=== PATIENT | female | born 1940 | race Caucasian/White ===

== ENCOUNTER 2017-04-10 10:47 | Outpatient (CLI) | payer MEDICARE, OTHER ==
--- NOTE | 2017-04-17 07:02 | Mammography Report ---
EXAM: DIGITAL BILATERAL SCREENING MAMMOGRAM 04/10/2017. CLINICAL INDICATION: A 76-year-old with personal history of right breast cancer , status post lumpectomy and radiation therapy for screening. COMPARISON: 03/2016, 02/2015, 02/2014, 02/2013, 01/2011, 01/2010. TECHNIQUE: Routine CC and MLO projections were obtained of the breasts. FINDINGS: The breasts again demonstrate scattered fibroglandular densities bilaterally. Postoperative and posttreatment changes in the right breast are stable. Coarse, typically benign calcifications are present. No suspicious masses, clustered microcalcifications, or regions of architectural distortion are identified. IMPRESSION: Benign findings. RECOMMENDATIONS: Routine annual screening unless otherwise clinically indicated. BIRADS 2: Benign findings. STANDARD QUALIFYING STATEMENTS 1. This examination was reviewed with the aid of Computed-Aided Detection (CAD) . 2. A negative or benign imaging report should not delay biopsy if clinically suspicious findings are present. Consider surgical consultation if warranted. More than 5% of cancers are not identified by imaging. 3. Dense breasts may obscure an underlying neoplasm. TD: 04/11/2017 20:06 CEDRIC
== END 2017-04-10 10:48 | disposition home or self-care (01) ==
LOC: DI 10:47
PROVIDERS: ATTEND Family Medicine
DX: Z12.31 Encounter for screening mammogram for malignant neoplasm of breast (principal); Z85.3 Personal history of malignant neoplasm of breast
CPT/HCPCS: 77067

== ENCOUNTER 2018-04-24 16:01 | Outpatient (CLI) | payer MEDICARE, OTHER ==
--- NOTE | 2018-04-25 08:32 | Mammography Report ---
Reason: SCREENING JHOANA Procedure Date: 04/24/2018 Accession Number: [id number] / [id number] Procedure: JEANNIE - Screening Mammo w/Alpesh CPT Code: FULL RESULT: EXAM: Screening Mammo w/Alpesh DATE: 04/24/2018 4:31 PM CLINICAL HISTORY: Screening encounter. Personal history of right breast cancer status post lumpectomy and radiation in 09/2006. History of early menses. TECHNIQUE: Bilateral CC and MLO views were obtained. COMPARISON: 04/10/2017 through 03/13/2013. FINDINGS: The breasts demonstrate scattered fibroglandular densities bilaterally. Postsurgical and posttreatment changes are again seen in the right breast. No suspicious masses, clustered microcalcifications, or regions of architectural distortion are identified. IMPRESSION: Benign findings RECOMMENDATION: Routine annual screening unless otherwise clinically indicated. BIRADS CATEGORY 2: Benign findings STANDARD QUALIFYING STATEMENTS: 1. This examination was not reviewed with the aid of Computer-Aided Detection (CAD). 2. A negative or benign imaging report should not preclude biopsy if clinically suspicious findings are present. 3. Dense breasts may obscure an underlying neoplasm. 4. This examination was reviewed with the aid of 3D breast imaging (tomosynthesis).
== END 2018-04-24 16:02 | disposition home or self-care (01) ==
LOC: DI 16:01
DX: Z12.31 Encounter for screening mammogram for malignant neoplasm of breast (principal); Z85.3 Personal history of malignant neoplasm of breast
CPT/HCPCS: 77063; 77067

== ENCOUNTER 2018-10-02 12:13 | Outpatient (CLI) | payer MEDICARE, OTHER ==
--- NOTE | 2018-10-02 14:58 | XRAY Report ---
Reason: PAIN IN RIGHT HIP Procedure Date: 10/02/2018 Accession Number: [id number] / [id number] Procedure: XR - Hip w/Pelvis 2-3V RT CPT Code: FULL RESULT: EXAM: RIGHT HIP RADIOGRAPHY EXAM DATE: 10/02/2018 12:27 PM. CLINICAL HISTORY: Pain in right hip. COMPARISON: None. TECHNIQUE: 2 views. FINDINGS: Bones: Normal. No fractures or bone lesion. Joints: Moderate relatively symmetric joint space narrowing of the femoral acetabular joints with mild marginal osteophytosis, slightly more pronounced on the right. Sacroiliac joints and pubic symphysis are within normal limits. Soft Tissues: Normal. No soft tissue swelling. IMPRESSION: Degenerative hip disease. RADIA
== END 2018-10-02 12:14 | disposition home or self-care (01) ==
LOC: DI 12:13
PROVIDERS: ATTEND Internal Medicine
DX: M16.11 Unilateral primary osteoarthritis, right hip (principal)

== ENCOUNTER 2019-04-01 07:36 | Outpatient (CLI) | payer MEDICARE, OTHER ==
--- NOTE | 2019-04-01 12:13 | Mammography Report ---
Reason: SCREENING MAMMO Procedure Date: 04/01/2019 Accession Number: [id number] / [id number] Procedure: JEANNIE - Screening Mammo w/Alpesh CPT Code: Final Report FULL RESULT: EXAM: Screening Mammo w/Alpesh DATE: 04/01/2019 8:19 AM CLINICAL HISTORY: The patient is an asymptomatic 78-year-old female presenting for screening mammography. Personal history right breast cancer, post conservation therapy. TECHNIQUE: (B) - Bilateral CC and MLO views were obtained. COMPARISON: 04/24/2018, 04/10/2017, 04/09/2016, 03/16/2015, 03/15/2014, 03/13/2013 02/28/2012 PARENCHYMAL PATTERN: (A) - The breasts demonstrate scattered fibroglandular densities bilaterally. FINDINGS: Stable posttreatment deformity in the right breast. The pattern of glandular asymmetry is stable given positional variation. Few coarse and dystrophic calcifications are noted. There are no suspicious masses, calcifications, or areas of distortion. IMPRESSION: Benign findings. BI-RADS category 2. RECOMMENDATION: (ANNUAL) - Recommend routine annual screening mammography. BI-RADS CATEGORY: (2) - Benign Findings. STANDARD QUALIFYING STATEMENTS: 1. This examination was not reviewed with the aid of Computer-Aided Detection (CAD). 2. A negative or benign imaging report should not preclude biopsy if clinically suspicious findings are present. 3. Dense breasts may obscure an underlying neoplasm. 4. This examination was reviewed with the aid of 3D breast imaging (tomosynthesis).
== END 2019-04-01 07:37 | disposition home or self-care (01) ==
LOC: DI 07:36
DX: Z12.31 Encounter for screening mammogram for malignant neoplasm of breast (principal); Z85.3 Personal history of malignant neoplasm of breast
CPT/HCPCS: 77063; 77067

== ENCOUNTER 2020-04-18 17:24 | Outpatient (CLI) | payer MEDICARE, OTHER | END 2020-04-18 17:25 | disposition home or self-care (01) | LOC: COV 17:24 | PROVIDERS: ATTEND Family Medicine | DX: Z20.828 Contact with and (suspected) exposure to other viral communicable diseases (principal) ==

== ENCOUNTER 2020-06-14 09:21 | Outpatient (CLI) | payer MEDICARE, OTHER ==
--- NOTE | 2020-06-15 15:07 | Mammography Report ---
BILATERAL DIGITAL SCREENING MAMMOGRAM 3D/2D: 06/14/2020 CLINICAL: Routine screening. Personal history of right breast cancer. Comparison is made to exams dated: 04/01/2019 mammogram, 04/24/2018 mammogram, 04/10/2017 mammogram, 04/09/2016 mammogram, 03/16/2015 mammogram, and 03/15/2014 mammogram - [facility]. The tissue of both breasts is predominantly fatty. There are stable benign calcifications in the right breast. There also are benign post operative fin dings in the right breast. No significant masses, calcifications, or other findings are seen in either breast. There has been no significant interval change. IMPRESSION: BENIGN There is no mammographic evidence of malignancy. A 1 year screening mammogram is recommended. This exam was interpreted at Station ID: [id number]. NOTE: For mammograms, a report in lay terms will be sent to the patient. Approximately 15% of breast malignancies will not be visualized mammographically. In the management of a palpable breast mass, a negative mammogram must not discourage biopsy of a clinically suspicious lesion. Electronically Signed By: Ghassan Armstrong acr/penrad:06/14/2020 09:53:18 ACR BI-RADS Category 2: Benign Finding(s) 3342F PARENCHYMAL PATTERN: (F) - The breast(s) demonstrate(s) diffuse fatty replacement. BI-RADS CATEGORY: (2) - 2 RECOMMENDATION: (ANNUAL) - Recommend routine annual screening mammography. [id number] 1 year screening LATERALITY: (B)
== END 2020-06-14 09:22 | disposition home or self-care (01) ==
LOC: DI 09:21
DX: Z12.31 Encounter for screening mammogram for malignant neoplasm of breast (principal); Z85.3 Personal history of malignant neoplasm of breast

== ENCOUNTER 2023-02-01 08:16 | Outpatient (CLI) | payer MEDICARE, OTHER ==
--- NOTE | 2023-02-01 10:31 | DEXA Report ---
PROCEDURE: Dexa Spine and/or Hip INDICATIONS: POST MENOPAUSAL TECHNIQUE: Dual energy x-ray absorptiometry (DXA) was performed on a docplanner System. Regions measur ed are the AP Spine, femoral neck, and if needed forearm. COMPARISON: None FINDINGS: Lumbar Spine: Bone Mineral Density 1.019 g/cm/cm,T score -1.3. Left Femoral Neck: Bone Mineral Density 0.64 g/cm/cm, T score -3. Left Hip: Bone Mineral Density 0.712 g/cm/cm,T score -2.3. (T score greater or equal to -1.0: NORMAL) (T score from -1.1 to -2.4: OSTEOPENIA) (T score less than or equal to -2.5 to: OSTEOPOROSIS) Impression: By WHO criteria, this patient has osteoporosis. Patients with diagnosis of osteoporosis or osteopenia should have regular bone mineral density assess ment. For those eligible for Medicare, routine testing is allowed once every 2 years. Testing frequ ency can be increased for patients who have rapidly progressing disease or for those who are receivin g medical therapy to restore bone mass. Reviewed by: Kai Weathers on 02/01/2023 10:30 AM PDT Approved by: Kai Weathers on 02/01/2023 10:30 AM PDT Station ID: [id number]
== END 2023-02-01 08:17 | disposition home or self-care (01) ==
LOC: DI 08:16
PROVIDERS: ATTEND Nurse Practitioner Family
DX: Z13.820 Encounter for screening for osteoporosis (principal); Z78.0 Asymptomatic menopausal state; M81.0 Age-related osteoporosis without current pathological fracture

== ENCOUNTER 2023-02-06 13:46 | Outpatient (CLI) | payer MEDICARE, OTHER ==
--- NOTE | 2023-02-07 11:52 | MRI Report ---
PROCEDURE: SHOULDER WO - LT INDICATIONS: CHRONIC LEFT SHOULDER PAIN TECHNIQUE: Noncontrast oblique coronal T2 fast spin echo with fat saturation, oblique sagittal T1 spin echo and T2 fast spin echo with fat saturation, axial T1 spin echo and T2 fast spin echo with fat saturation t hrough the shoulder. COMPARISON: None. FINDINGS: Image quality: Excellent. Rotator cuff: The distal portion of the subscapularis tendon is poorly visualized and full thickness tearing is suspected. There is grade 3-4 fatty infiltration of the subscapularis muscle. The distal supraspinatus and infraspinatus tendons appear attenuated, which may be secondary to generalized mild loss of muscle bulk although partial-thickness tearing is not excluded. No definite full thickness t earing is seen. The teres minor tendon is intact. There is grade 3-4 fatty infiltration of the teres minor muscle there is likely related to chronic denervation changes. No mass is seen along the course of the axillary nerve. Bones and bursae: Diffuse full-thickness cartilage loss is seen in the glenohumeral joint with marked remodeling of the articular surfaces as well as subchondral cystic changes and subchondral edema. Th e humeral head is high riding with narrowing of the acromiohumeral interval. There is retroversion of the distal glenoid articular surface relative to the midplane of the scapula. Multiple ossifications are seen surrounding the glenohumeral joint compatible with intra-articular loose bodies. Mild-to-mo derate degenerative changes are seen in the acromioclavicular joint. There is a small amount of subac romial/subdeltoid bursal fluid. Capsule and soft tissues: There is diffuse degenerative tearing and maceration of the labrum. The pro ximal biceps long head tendon appears to be intact within the intertubercular groove, although the in traarticular portion is not well seen. There is effacement of fat signal in the rotator interval. No definite capsular defect is seen. IMPRESSION: 1.Severe glenohumeral osteoarthrosis with subchondral cystic changes and subchondral edema as well as marked remodeling of the articular surfaces. Findings may be related to primary osteoarthrosis versu s prior trauma, osteonecrosis, or neuropathic arthropathy with secondary severe degenerative changes. 2.Chronic-appearing full-thickness tearing of the distal subscapularis tendon. There is grade 3-4 fat ty infiltration of the superior portion of the subscapularis muscle. 3.Attenuation of the supraspinatus and infraspinatus tendons may be related to underlying muscle atro phy versus chronic partial thickness tearing, although no definite full-thickness tear is seen. The h umeral head is high riding with narrowing of the acromiohumeral interval. 4.Teres minor tendon is intact. Grade 3-4 tiny infiltration of the teres minor muscle is most likely related to chronic denervation changes. No mass is seen along the course of an accessory nerve. 5.Mild to moderate acromioclavicular joint osteoarthrosis. 6.Multiple ossified intra-articular loose bodies are seen in the glenohumeral joint space. Reviewed by: Delvin Eason MD on 02/07/2023 11:50 AM PDT Approved by: Delvin Eason MD on 02/07/2023 11:50 AM PDT Station ID: [id number]
== END 2023-02-06 13:47 | disposition home or self-care (01) ==
LOC: DI 13:46
PROVIDERS: ATTEND Orthopaedic Surgery
DX: M19.012 Primary osteoarthritis, left shoulder (principal); M75.122 Complete rotator cuff tear or rupture of left shoulder, not specified as traumatic; M24.012 Loose body in left shoulder

== ENCOUNTER 2023-04-24 08:00 | Outpatient (CLI) | payer MEDICARE, OTHER | END 2023-04-24 08:01 | disposition home or self-care (01) | LOC: LAB.N 08:00 | PROVIDERS: ATTEND Physician Assistant Medical | DX: R05.1 Acute cough (principal) ==

== ENCOUNTER 2023-04-24 11:15 | Outpatient (CLI) | payer MEDICARE, OTHER ==
--- NOTE | 2023-04-24 18:09 | XRAY Report ---
PROCEDURE: Chest 2V INDICATIONS: ACUTE COUGH TECHNIQUE: 2 views of the chest were acquired. COMPARISON: None. FINDINGS: Surgical changes and devices: None. Lungs and pleura: No pleural effusions or pneumothorax. Lungs are clear. Mediastinum: Mediastinal contours appear normal. Heart size is normal. Bones and chest wall: No suspicious bony lesions. Severe degenerative changes of the left shoulder. Overlying soft tissues appear unremarkable. IMPRESSION: No acute cardiopulmonary process. Reviewed by: Ghassan Armstrong MD on 04/24/2023 6:08 PM [facility] Approved by: Ghassan Armstrong MD on 04/24/2023 6:08 PM [facility] Station ID: [id number]
== END 2023-04-24 11:30 | disposition home or self-care (01) ==
LOC: DI.N 11:15
PROVIDERS: ATTEND Physician Assistant Medical
DX: R05.1 Acute cough (principal)